=== PATIENT | male | born 1930 | race Caucasian/White ===

== ENCOUNTER 2016-05-05 15:15 | Emergency (ER) | payer MEDICARE ==
[~2016-05-05] VITALS: Ht 177.8 cm; Wt 90.0 kg
[~2016-05-05 15:15] MED LIST: 1-ME1LIQ PO; ASPI325T PO; ATOR40TA49; COQ-100C5 PO; COZA100T PO; HYDR-2768 PO; LEVI20TA PO; OMEGCAP2 PO; OMEP20TA PO; TAMS0.4C67 PO; TRAM50TA PO; WARF7.5 PO
[2016-05-05 15:18] VITALS: BP 156/72; PULSE 64; TEMP 97.5; O2SAT 90
[2016-05-05] MEDS ORDERED: methylPREDNISolone SOD SUCC 125 MG/2 ML VIAL IVP ONE (15:45)
[2016-05-05] MEDS ORDERED: SODIUM CHLORIDE 0.9% FLUSH 5 ML FLUSH IVF PRN (15:45)
--- NOTE | 2016-05-05 15:46 | PD ---
HPI Chief Complaint: Respiratory Symptoms Time Seen by Provider: 15:43 Travel History International Travel<30 days: No Contact w/Intl Traveler<30days: No Traveled to known affect area: No History of Present Illness HPI 86-year-old male presents to the emergency department for evaluation of cough, chest congestion, shortness breath, wheezing that started approximately one week ago. He reports progressive worsening symptoms despite [id number] treatment. He denies any history of asthma, COPD, pneumonia. He was a previous smoker. He does report some mild chest pain with coughing. He denies any fevers. He denies any history of wheezing. Has a history of congestive heart failure. He does have history of pacemaker, A. fib, hypertension, carotid enterectomy. He is currently on Coumadin. He denies any leg edema. No recent surgeries or travel. No other complaints. PFSH Past Medical History Arthritis: Yes (Bilateral hands and shoulders ) GERD: Yes Hypertension: Yes Past Surgical History Cardiac Surgery: Yes (PACEMAKER 2011) Pacemaker: Yes Social History Alcohol Use: Yes (2-3 BEERS A DAY) Tobacco Use: No Substance Use: No Allergies-Medications (Allergen,Severity, Reaction): Coded Allergies: Iodine (Verified Allergy, Unknown, 05/05/16) MRI PRECAUTION (Verified Adverse Reaction, Severe, NON REVO PACEMAKER 05/26 LRS, 05/05/16) Reported Meds & Prescriptions Reported Meds & Active Scripts Active Reported Fish Oil 1200 mg ([place]-3 Fatty Acids) 1 Cap Cap 1,200 Mg PO DAILY [Q10] Warfarin 7.5 Mg Tab 7.5 Mg PO ,,.FRI Warfarin 5 Mg Tab 5 Mg PO SAT,SUN,MON Tamsulosin (Tamsulosin HCl) 0.4 Mg Cap 0.4 Mg PO HS Amlodipine (Amlodipine Besylate) 2.5 Mg Tab 2.5 Mg PO DAILY Losartan (Losartan Potassium) 100 Mg Tab 100 Mg PO DAILY Review of Systems Except as stated in HPI: all other systems reviewed are Neg Physical Exam Narrative GENERAL: Well-developed well-nourished elderly male patient, afebrile. SKIN: Warm and dry. HEAD: Normocephalic. Atraumatic. EYES: No scleral icterus. No injection or drainage. NECK: Supple, trachea midline. No JVD or lymphadenopathy. CARDIOVASCULAR: Regular rate and rhythm without murmurs, gallops, or rubs. RESPIRATORY: Breath sounds equal bilaterally. No accessory muscle use. Lungs sounds with expiratory wheezes noted throughout. GASTROINTESTINAL: Abdomen soft, non-tender, nondistended. MUSCULOSKELETAL: No cyanosis, or edema. BACK: Nontender without obvious deformity. No CVA tenderness. Data Data Last Documented VS Vital Signs Date Time Temp Pulse Resp B/P Pulse Ox O2 Delivery O2 Flow Rate FiO2 05/05/16 16:56 98 Nasal Cannula 2.00 05/05/16 16:08 75 18 05/05/16 16:07 141/70 05/05/16 15:18 97.5 Orders Complete Blood Count With Diff (05/05/16 15:41) Basic Metabolic Panel (Bmp) (05/05/16 15:41) Magnesium (Mg) (05/05/16 15:41) Ckmb (Isoenzyme) Profile (05/05/16 15:41) Troponin I (05/05/16 15:41) Iv Access Insert/Monitor (05/05/16 15:41) Electrocardiogram (05/05/16 15:41) Ecg Monitoring (05/05/16 15:41) Oximetry (05/05/16 15:41) Oxygen Administration (05/05/16 15:41) Chest, Single Ap (05/05/16 15:41) Sodium Chloride 0.9% Flush (Ns Flush) (05/05/16 15:45) Methylprednisolone So Succ Inj (Solumedr (05/05/16 15:45) Albuterol-Ipratropium Neb (Duoneb Neb) (05/05/16 15:45) Prothrombin Time / Inr (Pt) (05/05/16 15:41) Act Partial Throm Time (Ptt) (05/05/16 15:41) B-Type Natriuretic Peptide (05/05/16 16:39) D-Dimer (05/05/16 16:39) Guaifenesin Er (Mucinex Er) (05/05/16 16:45) Albuterol-Ipratropium Neb (Duoneb Neb) (05/05/16 16:45) CKMB (05/05/16 16:11) CKMB% (05/05/16 16:11) Labs Laboratory Tests Test 05/05/16 16:11 White Blood Count 7.9 TH/MM3 Red Blood Count 4.52 MIL/MM3 Hemoglobin 14.0 GM/DL Hematocrit 41.7 % Mean Corpuscular Volume 92.1 FL Mean Corpuscular Hemoglobin 30.9 PG Mean Corpuscular Hemoglobin 33.6 % Concent Red Cell Distribution Width 14.8 % Platelet Count 178 TH/MM3 Mean Platelet Volume 9.6 FL Neutrophils (%) (Auto) 65.2 % Lymphocytes (%) (Auto) 16.6 % Monocytes (%) (Auto) 14.4 % Eosinophils (%) (Auto) 2.7 % Basophils (%) (Auto) 1.1 % Neutrophils # (Auto) 5.2 TH/MM3 Lymphocytes # (Auto) 1.3 TH/MM3 Monocytes # (Auto) 1.1 TH/MM3 Eosinophils # (Auto) 0.2 TH/MM3 Basophils # (Auto) 0.1 TH/MM3 CBC Comment DIFF FINAL Differential Comment Prothrombin Time 20.1 SEC Prothromb Time International 1.8 RATIO Ratio Activated Partial 38.3 SEC Thromboplast Time D-Dimer Quantitative (PE/DVT) 0.24 MG/L FEU Sodium Level 134 MEQ/L Potassium Level 4.5 MEQ/L Chloride Level 100 MEQ/L Carbon Dioxide Level 25.0 MEQ/L Anion Gap 9 MEQ/L Blood Urea Nitrogen 27 MG/DL Creatinine 1.47 MG/DL Estimat Glomerular Filtration 45 ML/MIN Rate Random Glucose 89 MG/DL Calcium Level 8.7 MG/DL Magnesium Level 2.2 MG/DL Total Creatine Kinase 166 U/L Creatine Kinase MB 1.5 NG/ML Troponin I 0.02 NG/ML B-Type Natriuretic Peptide 436 PG/ML [facility] Medical Decision Making Medical Screen Exam Complete: Yes Emergency Medical Condition: Yes Medical Record Reviewed: Yes Interpretation(s) cxr - CONCLUSION: Trace left base atelectasis. Differential Diagnosis Pneumonia versus bronchitis versus CHF versus URI versus ACS Narrative Course 86-year-old male presents to the emergency department for evaluation of cold symptoms for one week that is progressively worsening. Physical exam reveals extra wheezes noted throughout. EKG is ordered and pending. Chest x-ray is ordered and pending. CBC, BMP, magnesium, BNP, d-dimer, CK, troponin, PTT, PT/ INR ordered and pending. EKG shows paced rhythm, heart rate 81. Chest x-ray shows trace left base atelectasis. CBC shows no acute abnormalities. BMP shows elevated BUN/ creatinine 27/1.47. Magnesium is 2.2. CK is 166. Troponin is 0.02. BNP is 436. Coags show PT of 20.1, INR 1.8, PTT 38.3. D-dimer is 0.24. Upon reassessment, patient states he feels much better. The patient will be discharged prescription for azithromycin, prednisone, albuterol inhaler. He is to follow with his primary care physician. He is to return for any acute worsening of symptoms. The patient is agreeable to this plan. Diagnosis Primary Impression: Bronchitis Referrals: Primary Care Physician 1 day Patient Instructions: Acute Bronchitis (DC), General Instructions Additional Instructions: Take antibiotic as directed until gone. Take prednisone as directed. Start this tomorrow. Use albuterol inhaler as instructed as needed for shortness of breath/wheezing. Follow-up with her primary care physician a 1-2 days. Return to the emergency department for any acute worsening of symptoms. Med/Other Pt SpecificInfo: Prescription(s) given Scripts Albuterol 18 GM Inh (Ventolin Hfa 18 GM Inh)90 Mcg/Act Aer1 Puff INH Q4H PRN ( SHORTNESS OF BREATH) #1 INHALER Ref 0 Prov:Glenys Carroll 05/05/16 Prednisone 20 Mg Tab40 Mg PO DAILY 4 Days Ref 0 Prov:Glenys Carroll 05/05/16 Azithromycin (Zithromax Z-Blake)250 Mg [id number] Mg PO DIRECTED #1 DSPK Ref 0 500 MG (2 tabs) day 1, then 1 tab days 2-5. Prov:Glenys Carroll 05/05/16 Disposition: 01 DISCHARGE HOME Condition: Stable Glenys Carroll May 05, 2016 15:46
[2016-05-05] MEDS: RESP: ALBUTEROL 2.5 MG/IPRATROPIUM 0.5 MG NEB (SCH) INH (15:55)
[2016-05-05] MEDS ORDERED: WARF-23 PO (16:00)
[2016-05-05] MEDS ORDERED: Q10 (16:00)
[2016-05-05] MEDS ORDERED: AMLO2.5T PO (16:00)
[2016-05-05] MEDS ORDERED: WARF-21 PO (16:00)
[2016-05-05] MEDS ORDERED: TAMS0.4C4 PO (16:00)
[2016-05-05] MEDS ORDERED: OMEG5CAP PO (16:00)
[2016-05-05] MEDS ORDERED: LOSA100T PO (16:00)
[2016-05-05 16:01] VITALS: O2SAT 97
[2016-05-05 16:07] VITALS: BP 141/70; PULSE 79; RESP 18; O2SAT 98
[2016-05-05 16:25] LABS: AUTOMATED NEUTROPHIL # 5.2 TH/MM3 (1.8-7.7); BASOPHIL # 0.1 TH/MM3 (0-0.2); BASOPHIL % 1.1 % (0.0-2.0); EOSINOPHIL # 0.2 TH/MM3 (0-0.4); EOSINOPHIL % 2.7 % (0.0-4.0); HEMATOCRIT 41.7 % (39.0-51.0); HEMO FLAGS DIFF FINAL; LYMPH % 16.6 % (9.0-44.0); LYMPHOCYTE # 1.3 TH/MM3 (1.0-4.8); MEAN CELL VOLUME 92.1 FL (80.0-100.0); MEAN CORPUSCULAR HEMOGLOBIN 30.9 PG (27.0-34.0); MEAN CORPUSCULAR HGB CONC 33.6 % (32.0-36.0); MONO % 14.4 % (0.0-8.0); NEUT % 65.2 % (16.0-70.0); PLATELET COUNT 178 TH/MM3 (150-450); RED BLOOD COUNT 4.52 MIL/MM3 (4.50-5.90); RED CELL DISTRIBUTION WIDTH 14.8 % (11.6-17.2); WHITE BLOOD COUNT 7.9 TH/MM3 (4.0-11.0)
--- NOTE | 2016-05-05 16:30 | RADRPT ---
EXAM DATE/TIME: 05/05/2016 16:16 [facility] COMPARISON: CHEST SINGLE AP, May 26, 2012, 18:50. INDICATIONS : Short of Breath, Cough, Chest Pain. MEDICAL HISTORY : None. SURGICAL HISTORY : Pacemaker. ENCOUNTER: Initial ACUITY: 1 week PAIN SCORE: 3/10 LOCATION: Bilateral chest FINDINGS: Trace left base atelectasis noted. Right lung is clear. No pleural effusion or pneumothorax seen on e ither side. Heart size stable, upper limits of normal. Cardiac pacer again noted. Thoracic aorta is tortuous and atherosclerotic. CONCLUSION: Trace left base atelectasis. Marcus Almaguer MD on May 05, 2016 at 16:27 Board Certified Radiologist. This report was verified electronically.
[2016-05-05 16:33] LABS: APTT (PATIENT) 38.3 SEC (24.3-30.1); INTERNATIONAL NORMALIZED RATIO 1.8 RATIO; PROTHROMBIN TIME - PATIENT 20.1 SEC (9.8-11.6)
[2016-05-05] MEDS ORDERED: guaiFENesin E.R. 600 MG TAB PO ONE (16:45)
[2016-05-05] MEDS ORDERED: RESP: ALBUTEROL 2.5 MG/IPRATROPIUM 0.5 MG NEB (SCH) NEB ONE (16:45)
[2016-05-05 16:48] LABS: ANION GAP 9 MEQ/L (5-15); BLOOD UREA NITROGEN 27 MG/DL (7-18); CHLORIDE 100 MEQ/L (98-107); GLOMERULAR FILTRATION RATE 45 ML/MIN (>89); MAGNESIUM 2.2 MG/DL (1.5-2.5); POTASSIUM 4.5 MEQ/L (3.5-5.1); SODIUM (NA) 134 MEQ/L (136-145)
[2016-05-05 16:50] LABS: CREATINE KINASE 166 U/L (39-308)
[2016-05-05 16:56] VITALS: O2SAT 98
[2016-05-05 17:02] LABS: CKMB 1.5 NG/ML (0.5-3.6)
[2016-05-05] MEDS ORDERED: PRED20 PO (18:07)
[2016-05-05] MEDS ORDERED: VENTAER INH (18:07)
[2016-05-05] MEDS ORDERED: ZITHTAB PO (18:07)
[2016-05-05 18:08] VITALS: BP 134/65; PULSE 91; RESP 18; O2SAT 95
--- NOTE | 2016-05-06 18:25 | EKG ---
Date Performed: 05/05/2016 Time Performed: 15:52:37 PTAGE: 86 years EKG: ELECTRONIC VENTRICULAR PACEMAKER Since previous tracing, no significant change noted ABNORM AL RHYTHM ECG PREVIOUS TRACING : 05/26/2012 18.22 DOCTOR: Avelina Freeman Interpretating Date/Time 05/06/2016 18:23:51
== END 2016-05-05 18:54 | disposition home or self-care (01) ==
LOC: NEPC 15:15
DX: J40 Bronchitis, not specified as acute or chronic (principal); I10 Essential (primary) hypertension; I48.91 Unspecified atrial fibrillation; M19.041 Primary osteoarthritis, right hand; M19.042 Primary osteoarthritis, left hand; M19.012 Primary osteoarthritis, left shoulder; M19.011 Primary osteoarthritis, right shoulder; F10.20 Alcohol dependence, uncomplicated; Z87.891 Personal history of nicotine dependence; Z95.0 Presence of cardiac pacemaker
CPT/HCPCS: 71010; 80048; 82550; 82552; 83735; 83880; 84484; 85025; 85379; 85610; 85730; 93005; 94640; 94664; 96374; 99284; J2930

== ENCOUNTER 2016-10-10 16:04 | Inpatient (IN) | payer MEDICARE ==
[~2016-10-10 16:04] MED LIST changes: -1-ME1LIQ PO; +AMLO2.5T PO; -ASPI325T PO; -ATOR40TA49; -COQ-100C5 PO; -COZA100T PO; -HYDR-2768 PO; -LEVI20TA PO; +LOSA100T PO; +OMEG5CAP PO; -OMEGCAP2 PO; -OMEP20TA PO; +PRED20 PO; +Q10; +TAMS0.4C4 PO; -TAMS0.4C67 PO; -TRAM50TA PO; +VENTAER INH; +WARF-21 PO; +WARF-23 PO; -WARF7.5 PO; +ZITHTAB PO
[2016-10-10 16:15] VITALS: BP 188/98; PULSE 87; RESP 23; O2SAT 98
[2016-10-10 16:36] VITALS: BP 188/98; PULSE 87; RESP 23; O2SAT 98
[2016-10-10] MEDS ORDERED: SODIUM CHLORIDE 0.9% FLUSH 10 ML FLUSH IVF PRN (16:45)
[2016-10-10] MEDS ORDERED: ISOS30TA3 PO (16:49)
[2016-10-10] MEDS ORDERED: COUM10TA PO (16:49)
--- NOTE | 2016-10-10 16:56 | PD ---
HPI Chief Complaint: Respiratory Distress Time Seen by Provider: 16:16 Travel History International Travel<30 days: No Contact w/Intl Traveler<30days: No Traveled to known affect area: No History of Present Illness HPI Patient is an 86 year old male with history of afib, pacemaker, htn, who was sent to the ER by his PCP Dr. Ross for admission and evaluation of SOB. Patient reports that he has been short of breath for the past 5 days. Reports that he is short of breath at rest as well as on exertion. Reports no chest pain, denies cough/congestion. Denies fever/chills. He apparently saw Dr. Diaz 4 days ago and no new diagnosis was made. Patient was sent to the ER for evaluation to rule out Pulmonary embolism although he is on warfarin with history of afib and to rule out ACS PFSH Past Medical History Hx Anticoagulant Therapy: Yes Arthritis: Yes (Bilateral hands and shoulders ) Cardiovascular Problems: Yes Chemotherapy: No Cerebrovascular Accident: No Diabetes: No GERD: Yes Hypertension: Yes Respiratory: Yes Past Surgical History Cardiac Surgery: Yes (PACEMAKER 2011) Hysterectomy: No Pacemaker: Yes Social History Alcohol Use: Yes Tobacco Use: No Substance Use: No Allergies-Medications (Allergen,Severity, Reaction): Coded Allergies: Pravastatin (Verified Allergy, Severe, Hives, 10/10/16) Shellfish (Verified Allergy, Severe, 10/10/16) Iodine (Verified Allergy, Unknown, 10/10/16) MRI PRECAUTION (Verified Adverse Reaction, Severe, NON REVO PACEMAKER 05/26 LRS, 10/10/16) Reported Meds & Prescriptions Reported Meds & Active Scripts Active Reported Coumadin (Warfarin) 10 Mg Tab 10 Mg PO DAILY Fish Oil 1200 mg ([place]-3 Fatty Acids) 1 Cap Cap 1,200 Mg PO DAILY [Q10] Warfarin 7.5 Mg Tab 7.5 Mg PO ,W,TH.FRI Warfarin 5 Mg Tab 5 Mg PO SAT,FRI,MON Isosorbide Mononitrate ER (Isosorbide Mononitrate) 30 Mg Liliane 30 Mg PO DAILY Review of Systems General / Constitutional: No: Fever Eyes: No: Visual changes HENT: No: Headaches Cardiovascular: No: Chest Pain or Discomfort Respiratory: Positive: Shortness of Breath Gastrointestinal: No: Abdominal Pain Genitourinary: No: Dysuria Musculoskeletal: No: Pain Skin: No Rash Neurologic: No: Weakness Psychiatric: No: Depression Endocrine: No: Polydipsia Hematologic/Lymphatic: No: Easy Bruising Physical Exam Narrative GENERAL: Moderate distress SKIN: Focused skin assessment warm/dry. HEAD: Atraumatic. Normocephalic. EYES: Pupils equal and round. No scleral icterus. No injection or drainage. ENT: No nasal bleeding or discharge. Mucous membranes pink and moist. NECK: Trachea midline. No JVD. CARDIOVASCULAR: Regular rate and rhythm. No murmur appreciated. RESPIRATORY: No accessory muscle use. Clear to auscultation. Breath sounds equal bilaterally. GASTROINTESTINAL: Abdomen soft, non-tender, nondistended. Hepatic and splenic margins not palpable. MUSCULOSKELETAL: No obvious deformities. No clubbing. No cyanosis. No edema. NEUROLOGICAL: Awake and alert. No obvious cranial nerve deficits. Motor grossly within normal limits. Normal speech. PSYCHIATRIC: Appropriate mood and affect; insight and judgment normal. Data Data Last Documented VS Vital Signs Date Time Temp Pulse Resp B/P Pulse Ox O2 Delivery O2 Flow Rate FiO2 10/10/16 18:24 85 19 173/84 97 Nasal Cannula 2 Orders Electrocardiogram (10/10/16 16:42) B-Type Natriuretic Peptide (10/10/16 16:42) Ckmb (Isoenzyme) Profile (10/10/16 16:42) Complete Blood Count With Diff (10/10/16 16:42) Comprehensive Metabolic Panel (10/10/16 16:42) Magnesium (Mg) (10/10/16 16:42) Prothrombin Time / Inr (Pt) (10/10/16 16:42) Act Partial Throm Time (Ptt) (10/10/16 16:42) Troponin I (10/10/16 16:42) Lipase (10/10/16 16:42) Chest, Single Ap (10/10/16 16:42) Ecg Monitoring (10/10/16 16:42) Iv Access Insert/Monitor (10/10/16 16:42) Oximetry (10/10/16 16:42) Sodium Chloride 0.9% Flush (Ns Flush) (10/10/16 16:45) Us Leg Venous Doppler Bilat (10/10/16 ) Ventilation & Perfusion Scan (10/10/16 ) Blood Culture (10/10/16 18:09) Ceftriaxone Inj (Rocephin Inj) (10/10/16 18:15) Azithromycin Inj (Zithromax Inj) (10/10/16 18:15) Diet Diabetic (10/10/16 Dinner) Ct Thorax/ Chest Wo Iv Contras (10/10/16 ) Admit Order (Ed Use Only) (10/10/16 18:42) Labs Laboratory Tests Test 10/10/16 16:55 White Blood Count 7.5 TH/MM3 Red Blood Count 4.69 MIL/MM3 Hemoglobin 14.5 GM/DL Hematocrit 42.8 % Mean Corpuscular Volume 91.2 FL Mean Corpuscular Hemoglobin 30.8 PG Mean Corpuscular Hemoglobin 33.8 % Concent Red Cell Distribution Width 16.8 % Platelet Count 198 TH/MM3 Mean Platelet Volume 9.7 FL Neutrophils (%) (Auto) 67.4 % Lymphocytes (%) (Auto) 19.0 % Monocytes (%) (Auto) 11.4 % Eosinophils (%) (Auto) 1.5 % Basophils (%) (Auto) 0.7 % Neutrophils # (Auto) 5.0 TH/MM3 Lymphocytes # (Auto) 1.4 TH/MM3 Monocytes # (Auto) 0.8 TH/MM3 Eosinophils # (Auto) 0.1 TH/MM3 Basophils # (Auto) 0.0 TH/MM3 CBC Comment DIFF FINAL Differential Comment Prothrombin Time 24.1 SEC Prothromb Time International 2.1 RATIO Ratio Activated Partial 35.6 SEC Thromboplast Time Sodium Level 138 MEQ/L Potassium Level 5.3 MEQ/L Chloride Level 103 MEQ/L Carbon Dioxide Level 26.1 MEQ/L Anion Gap 9 MEQ/L Blood Urea Nitrogen 25 MG/DL Creatinine 1.30 MG/DL Estimat Glomerular Filtration 52 ML/MIN Rate Random Glucose 87 MG/DL Calcium Level 9.1 MG/DL Magnesium Level 2.3 MG/DL Total Bilirubin 1.1 MG/DL Aspartate Amino Transf 43 U/L (AST/SGOT) Alanine Aminotransferase 55 U/L (ALT/SGPT) Alkaline Phosphatase 60 U/L Total Creatine Kinase 99 U/L Troponin I 0.02 NG/ML B-Type Natriuretic Peptide 702 PG/ML Total Protein 7.5 GM/DL Albumin 3.1 GM/DL Lipase 97 U/L [facility] Medical Decision Making Medical Screen Exam Complete: Yes Emergency Medical Condition: Yes Interpretation(s) EKG at 1645: Ventricular paced at 85bpm, qt/qtc: 431/473 Vital Signs Date Time Temp Pulse Resp B/P Pulse Ox O2 Delivery O2 Flow Rate FiO2 10/10/16 16:36 87 23 188/98 98 10/10/16 16:15 87 23 188/98 98 Nasal Cannula 3 Differential Diagnosis ACS, arrhythmia, PE, electrolyte abnormality, pneumonia Narrative Course 86-year-old male who was sent to the emergency room for evaluation of shortness of breath. Patient currently is on Coumadin as he has history of A. fib and ventricular pacemaker, reports that he has been short of breath at rest as well as exertion for the past 5 days. Patient was sent to the emergency room to rule out ACS versus PE. Patient does have allergy to IV dye, unable to perform CTA, will obtain VQ scan as well as Doppler ultrasounds of lower extremities. Patient was placed on a network coordinator upon arrival to the emergency room, plan to obtain lab work and x-ray of the chest. Laboratory Tests Test 10/10/16 16:55 White Blood Count 7.5 TH/MM3 (4.0-11.0) Red Blood Count 4.69 MIL/MM3 (4.50-5.90) Hemoglobin 14.5 GM/DL (13.0-17.0) Hematocrit 42.8 % (39.0-51.0) Mean Corpuscular Volume 91.2 FL (80.0-100.0) Mean Corpuscular Hemoglobin 30.8 PG (27.0-34.0) Mean Corpuscular Hemoglobin 33.8 % Concent (32.0-36.0) Red Cell Distribution Width 16.8 % (11.6-17.2) Platelet Count 198 TH/MM3 (150-450) Mean Platelet Volume 9.7 FL (7.0-11.0) Neutrophils (%) (Auto) 67.4 % (16.0-70.0) Lymphocytes (%) (Auto) 19.0 % (9.0-44.0) Monocytes (%) (Auto) 11.4 % (0.0-8.0) Eosinophils (%) (Auto) 1.5 % (0.0-4.0) Basophils (%) (Auto) 0.7 % (0.0-2.0) Neutrophils # (Auto) 5.0 TH/MM3 (1.8-7.7) Lymphocytes # (Auto) 1.4 TH/MM3 (1.0-4.8) Monocytes # (Auto) 0.8 TH/MM3 (0-0.9) Eosinophils # (Auto) 0.1 TH/MM3 (0-0.4) Basophils # (Auto) 0.0 TH/MM3 (0-0.2) CBC Comment DIFF FINAL Differential Comment Prothrombin Time 24.1 SEC (9.8-11.6) Prothromb Time International 2.1 RATIO Ratio Activated Partial 35.6 SEC Thromboplast Time (24.3-30.1) Sodium Level 138 MEQ/L (136-145) Potassium Level 5.3 MEQ/L (3.5-5.1) Chloride Level 103 MEQ/L (98-107) Carbon Dioxide Level 26.1 MEQ/L (21.0-32.0) Anion Gap 9 MEQ/L (5-15) Creatinine 1.30 MG/DL (0.60-1.30) Estimat Glomerular Filtration 52 ML/MIN (>89) Rate Random Glucose 87 MG/DL (74-106) Calcium Level 9.1 MG/DL (8.5-10.1) Magnesium Level 2.3 MG/DL (1.5-2.5) Aspartate Amino Transf 43 U/L (15-37) (AST/SGOT) B-Type Natriuretic Peptide 702 PG/ML (0-100) Albumin 3.1 GM/DL (3.4-5.0) Patient with wbc 7.5, sodium 138, potassium 5.3, INR 2.1, doppler US of LE's neg for dvt, VQ scan pending to r/o PE, patient does have an xray of his chest which shows a lobar consolidation of left lower lobe - I do think that this is the reason why he is short of breath case reviewed with dr. hopper who accepts pt to admission, request ct of chest , understands that VQ is pending Diagnosis Primary Impression: Pneumonia Additional Impression: SOB (shortness of breath) Admitting Information Admitting Physician Requests: Observation Chen García DO Oct 10, 2016 16:56
[2016-10-10 17:23] LABS: BASOPHIL % 0.7 % (0.0-2.0); EOSINOPHIL # 0.1 TH/MM3 (0-0.4); EOSINOPHIL % 1.5 % (0.0-4.0); HEMATOCRIT 42.8 % (39.0-51.0); HEMO FLAGS DIFF FINAL; LYMPHOCYTE # 1.4 TH/MM3 (1.0-4.8); MEAN CELL VOLUME 91.2 FL (80.0-100.0); MEAN CORPUSCULAR HEMOGLOBIN 30.8 PG (27.0-34.0); MEAN CORPUSCULAR HGB CONC 33.8 % (32.0-36.0); MONO % 11.4 % (0.0-8.0); NEUT % 67.4 % (16.0-70.0); PLATELET COUNT 198 TH/MM3 (150-450); RED BLOOD COUNT 4.69 MIL/MM3 (4.50-5.90); RED CELL DISTRIBUTION WIDTH 16.8 % (11.6-17.2); WHITE BLOOD COUNT 7.5 TH/MM3 (4.0-11.0)
[2016-10-10 17:32] LABS: APTT (PATIENT) 35.6 SEC (24.3-30.1); INTERNATIONAL NORMALIZED RATIO 2.1 RATIO; PROTHROMBIN TIME - PATIENT 24.1 SEC (9.8-11.6)
[2016-10-10 17:52] LABS: ANION GAP 9 MEQ/L (5-15); AST (GOT) 43 U/L (15-37); BICARBONATE 26.1 MEQ/L (21.0-32.0); CHLORIDE 103 MEQ/L (98-107); GLOMERULAR FILTRATION RATE 52 ML/MIN (>89); MAGNESIUM 2.3 MG/DL (1.5-2.5); SODIUM (NA) 138 MEQ/L (136-145)
[2016-10-10 17:55] LABS: POTASSIUM 5.3 MEQ/L (3.5-5.1)
--- NOTE | 2016-10-10 17:58 | RADRPT ---
EXAM DATE/TIME: 10/10/2016 17:28 [facility] COMPARISON: CHEST SINGLE AP, May 05, 2016, 16:16. INDICATIONS : Short of breath. MEDICAL HISTORY : None. SURGICAL HISTORY : Pacemaker. ENCOUNTER: Initial ACUITY: 1 day PAIN SCORE: 0/10 LOCATION: Bilateral chest FINDINGS: There is consolidation in the left lower lung causing loss of delineation of the entire left hemidiap hragm and portions of the lateral left heart border. A few air bronchograms in the retrocardiac marge on. The right lung is clear. Portions of the right hemidiaphragm are delineated. The heart is norm al size. CONCLUSION: Lobar consolidation left lower lobe. Jose Rodriguez MD on October 10, 2016 at 17:56 Board Certified Radiologist. This report was verified electronically.
--- NOTE | 2016-10-10 18:09 | RADRPT ---
EXAM DATE/TIME: 10/10/2016 17:28 [facility] COMPARISON: No previous studies available for comparison. INDICATIONS : Shortness of breath. MEDICAL HISTORY : Arthritis. Hypertension. Gastroesophageal reflux disease. Atrial fibrillation. SURGICAL HISTORY : Pacemaker. Endardectomy. ENCOUNTER: Initial ACUITY: 1 week PAIN SCORE: 3/10 LOCATION: Bilateral legs. TECHNIQUE: Venous ultrasound of the left and right leg was performed from the inguinal ligament to the proximal calf. Real-time, color Doppler and spectral tracing, compression and augmentation techniques were us ed. FINDINGS: RIGHT LEG: There is normal compressibility of the deep venous system from the inguinal region to the proximal ca lf. No echogenic clot is seen in the lumen of the common femoral, femoral, popliteal, and posterior tibial veins. There is a normal response of the venous system to proximal and distal augmentation an d respiration. LEFT LEG: There is normal compressibility of the deep venous system from the inguinal region to the proximal ca lf. No echogenic clot is seen in the lumen of the common femoral, femoral, popliteal, and posterior tibial veins. There is a normal response of the venous system to proximal and distal augmentation an d respiration. CONCLUSION: The study is negative for deep venous thrombosis bilateral lower extremities. Jose Rodriguez MD on October 10, 2016 at 18:07 Board Certified Radiologist. This report was verified electronically.
[2016-10-10 18:13] LABS: ALKALINE PHOSPHATASE 60 U/L (45-117); ALT (GPT) 55 U/L (12-78); BLOOD UREA NITROGEN 25 MG/DL (7-18); CREATINE KINASE 99 U/L (39-308); TOTAL BILIRUBIN ADULT 1.1 MG/DL (0.2-1.0)
[2016-10-10] MEDS ORDERED: AZITHROMYCIN INJ 500 MG in SODIUM CHLOR 0.9% 250 ML INJ 250 ML IV ONE (18:15)
[2016-10-10] MEDS ORDERED: cefTRIAXone INJ 1,000 MG in SODIUM CHLORIDE 0.9% INJ 100 ML IV ONE (18:15)
[2016-10-10 18:24] VITALS: BP 173/84; PULSE 85; RESP 19; O2SAT 97
--- NOTE | 2016-10-10 19:37 | RADRPT ---
EXAM DATE/TIME: 10/10/2016 19:03 [facility] COMPARISON: CHEST SINGLE AP, October 10, 2016, 17:28. INDICATIONS : Dyspnea for five days. DOSE: 8.5 mCi Tc99m MAA IV 0.80 mCi Tc99m DTPA aerosol MEDICAL HISTORY : Hypertension. Gastroesophageal reflux disease. Atrial fibrillation. SURGICAL HISTORY : Pacemaker. ENCOUNTER: Initial ACUITY: 4 - 6 days PAIN SCALE: 0/10 LOCATION: Chest. TECHNIQUE: Following five minutes of tidal breathing of DTPA aerosol, planar images of the lungs were performed in eight projections. The patient was then injected with MAA, and eight-view perfusion scan was perf ormed. FINDINGS: There is diminished ventilation and perfusion to the left lower lobe associated with consolidative ch anges on the chest x-ray. No other focal segmental or subsegmental perfusion abnormalities are identi fied. CONCLUSION: Strictly indeterminate scan tending toward lower likelihood of PE given the constellation of findings Marcus Terrell MD on October 10, 2016 at 19:31 Board Certified Radiologist. This report was verified electronically.
[2016-10-10 20:17] VITALS: PULSE 88; RESP 18; O2SAT 98
--- NOTE | 2016-10-10 20:18 | RADRPT ---
EXAM DATE/TIME: 10/10/2016 19:37 [facility] COMPARISON: No previous studies available for comparison. INDICATIONS : Sob x 5 days . RADIATION DOSE: 5.88 CTDIvol (mGy) MEDICAL HISTORY : Cardiovascular disease. Hypertension. Gastroesophageal reflux disease. SURGICAL HISTORY : None. ENCOUNTER: Initial ACUITY: 4 - 6 days PAIN SCALE: 7/10 LOCATION: Bilateral chest TECHNIQUE: Volumetric scanning of the chest was performed. Using automated exposure control and adjustment of t he mA and/or kV according to patient size, radiation dose was kept as low as reasonably achievable to obtain optimal diagnostic quality images. FINDINGS: There are bilateral pleural effusions present, moderate on the left and small on the right. There is compressive atelectasis in the lung bases, left worse than right. There are mildly prominent potentially reactive lymph nodes in the central mediastinum. Coronary patience ry calcifications are present. Pacemaker is noted. There is no evidence of axillary adenopathy or chest wall destruction. Upper abdominal structures are benign. CONCLUSION: Effusions and basilar lung atelectasis, left worse than right. Marcus Terrell MD on October 10, 2016 at 20:14 Board Certified Radiologist. This report was verified electronically.
--- NOTE | 2016-10-10 20:35 | HHI.HP ---
HPI Service [facility] Hospitalists Primary Care Physician Gonzalo Ross MD Admission Diagnosis Pneumonia, shortness of breath Chief Complaint: dyspnea Travel History International Travel<30 Days: No Contact w/Intl Traveler <30 Da: No Traveled to Known Affected Are: No History of Present Illness Patient is an 86 year old male with history of afib, pacemaker, htn, ? COPD who was sent to the ER by his PCP Dr. Ross for admission and evaluation of SOB. Patient reports that he has been short of breath for the past 5 days. Reports that he is short of breath at rest as well as on exertion. Dyspnea is worse with lying flat. Reports no chest pain, denies cough/congestion. Denies fever/ chills. He apparently saw Dr. Diaz 4 days ago and no new diagnosis was made but he had some tests ordered. Per outpatient chart review patient has had dyspnea for quite some time but current episode has been ongoing for 5 days. He is noted to have pleural effusions and has been seeing pulmonology regarding this. The etiology of this profusion is as of yet undetermined but was noted on October 07 chest x-ray as an outpatient. Patient denies any significant weight gain or lower extremity edema of late. He actually states that he has overall lost weight over the last few months. Review of outpatient records does support approximately 12-15 pound weight loss over the last few months. He states that he feels better here with supplemental oxygen in place. It is noted that his outpatient room air saturation was 94%. He has had no recent medication change but apparently was treated for bronchitis with azithromycin several months ago. He also had isosorbide started at the end of July of this year for some intrascapular back pain. This helped his shortness of breath for a while but the dyspnea has returned now. He denies any hemoptysis or night sweats. Review of Systems Constitutional: COMPLAINS OF: Fatigue, Weight loss, DENIES: Diaphoretic episodes, Fever, Weight gain, Chills, Dizziness, Change in appetite, Night Sweats Endocrine: DENIES: Heat/cold intolerance, Polydipsia, Polyuria, Polyphagia Ears, nose, mouth, throat: COMPLAINS OF: Hearing loss, DENIES: Tinnitus, Vertigo, Nasal discharge, Oral lesions, Throat pain, Hoarseness, Ear Pain, Running Nose, Epistaxis, Sinus Pain, Toothache, Odynophagia Respiratory: COMPLAINS OF: Cough, Shortness of breath, DENIES: Apneas, Snoring , Wheezing, Hemoptysis, Sputum production Cardiovascular: COMPLAINS OF: Dyspnea on Exertion, Orthopnea, DENIES: Chest pain, Palpitations, Syncope, PND, Lower Extremity Edema, Claudication Gastrointestinal: COMPLAINS OF: Difficulty Swallowing, DENIES: Abdominal pain , Black stools, Bloody stools, BRB per rectum, Constipation, Diarrhea, GERD, Nausea, Reflux, Vomiting, Anorexia, See HPI Musculoskeletal: COMPLAINS OF: Joint pain, Back pain Hematologic/lymphatic: COMPLAINS OF: Bruising Neurologic: COMPLAINS OF: Abnormal gait, DENIES: Headache, Localized weakness , Paresthesias, Seizures, Speech Problems, Tremor, Poor Balance Psychiatric: COMPLAINS OF: Anxiety Past Family Social History Past Medical History Angina pectoris Atherosclerosis of the aorta Atrial fibrillation BPH Possible COPD/chronic bronchitis Diminished hearing Chronic kidney disease stage III Elevated d-dimer Fatigue Hyperlipidemia Hypertension Inflammatory polyarthritis Obstructive sleep apnea Pulmonary hypertension Peripheral arterial disease 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 Dyspnea Past Surgical History Left carotid endarterectomy Pacemaker placement in 2011 Forearm laceration repair Wrist surgery Reported Medications Coumadin (Warfarin) 10 Mg Tab 10 Mg PO EACH FRIDAY Fish Oil 1200 mg ([place]-3 Fatty Acids) 1 Cap Cap 1,200 Mg PO DAILY [Q10] Warfarin 7.5 Mg Tab 7.5 Mg PO FRIDAY, FRIDAY, FRIDAY Warfarin 5 Mg Tab 5 Mg PO FRIDAY, FRIDAY, FRIDAY Isosorbide Mononitrate ER (Isosorbide Mononitrate) 30 Mg Liliane 30 Mg PO DAILY CoQ10 100 mg twice a day Mucinex 600 mg twice a day Omeprazole 20 mg daily as needed Ventolin inhaler 2 puffs every 4 hours as needed for cough or wheeze Allergies: Coded Allergies: Pravastatin (Verified Allergy, Severe, Hives, 10/10/16) Shellfish (Verified Allergy, Severe, 10/10/16) Iodine (Verified Allergy, Unknown, 10/10/16) MRI PRECAUTION (Verified Adverse Reaction, Severe, NON REVO PACEMAKER 05/26 LRS, 10/10/16) Family History Noncontributory Social History No tobacco in 50 years prior to that he did smoke 1-2 packs per day for approximately 15-20 years Drinks 2 beers per day for 2 years this is the second marriage he is prior to that Worked as a digital computer operator Originally from [place] Physical Exam Vital Signs Vital Signs Date Time Temp Pulse Resp B/P Pulse Ox O2 Delivery O2 Flow Rate FiO2 10/10/16 18:24 85 19 173/84 97 Nasal Cannula 2 10/10/16 16:36 87 23 188/98 98 10/10/16 16:15 87 23 188/98 98 Nasal Cannula 3 Physical Exam GENERAL: This is a well-nourished, well-developed patient, in no apparent distress. Alert and oriented. A bit hard of hearing. SKIN: Left flank with a few patches of erythema and early vesicle formation HEAD: Atraumatic. Normocephalic. No temporal or scalp tenderness. EYES: Pupils equal round and reactive. Extraocular motions intact. No scleral icterus. No injection or drainage. ENT: Nose without bleeding, purulent drainage or septal hematoma. Nasal cannula in place. Airway patent. NECK: Trachea midline. No JVD or lymphadenopathy. Supple, nontender, no meningeal signs. CARDIOVASCULAR: Irregular without murmurs, gallops, or rubs. RESPIRATORY: Clear to auscultation. Diminished breath sounds in the left base. No wheezes, rales, or rhonchi. GASTROINTESTINAL: Abdomen soft, non-tender, nondistended. No hepato-splenomegaly , or palpable masses. No guarding. MUSCULOSKELETAL: Extremities without clubbing, cyanosis. Trace edema about his feet. No joint tenderness, effusion, or edema noted. No calf tenderness. NEUROLOGICAL: Awake and alert. Cranial nerves II through XII intact. Motor and sensory grossly within normal limits. Five out of 5 muscle strength in all muscle groups. Normal speech. Laboratory Laboratory Tests Test 10/10/16 16:55 White Blood Count 7.5 Red Blood Count 4.69 Hemoglobin 14.5 Hematocrit 42.8 Mean Corpuscular Volume 91.2 Mean Corpuscular Hemoglobin 30.8 Mean Corpuscular Hemoglobin 33.8 Concent Red Cell Distribution Width 16.8 Platelet Count 198 Mean Platelet Volume 9.7 Neutrophils (%) (Auto) 67.4 Lymphocytes (%) (Auto) 19.0 Monocytes (%) (Auto) 11.4 Eosinophils (%) (Auto) 1.5 Basophils (%) (Auto) 0.7 Neutrophils # (Auto) 5.0 Lymphocytes # (Auto) 1.4 Monocytes # (Auto) 0.8 Eosinophils # (Auto) 0.1 Basophils # (Auto) 0.0 CBC Comment DIFF FINAL Differential Comment Prothrombin Time 24.1 Prothromb Time International 2.1 Ratio Activated Partial 35.6 Thromboplast Time Sodium Level 138 Potassium Level 5.3 Chloride Level 103 Carbon Dioxide Level 26.1 Anion Gap 9 Blood Urea Nitrogen 25 Creatinine 1.30 Estimat Glomerular Filtration 52 Rate Random Glucose 87 Calcium Level 9.1 Magnesium Level 2.3 Total Bilirubin 1.1 Aspartate Amino Transf 43 (AST/SGOT) Alanine Aminotransferase 55 (ALT/SGPT) Alkaline Phosphatase 60 Total Creatine Kinase 99 Troponin I 0.02 B-Type Natriuretic Peptide 702 Total Protein 7.5 Albumin 3.1 Lipase 97 Date/Time Procedure Status Source Growth 10/10/16 18:20 Aerobic Blood Culture Received Blood Peripheral Pending 10/10/16 18:20 Anaerobic Blood Culture Received Blood Peripheral Pending Result Diagram: 10/10/16 1655 10/10/16 1655 Imaging Last 72 hours Impressions Chest X-Ray 10/10/16 1642 Signed Impressions: Service Date/Time: October 17:28 - CONCLUSION: Lobar consolidation left lower lobe. Jose Rodriguez MD Lung Scan- Nuclear Medicine 10/10/16 0000 Signed Impressions: Service Date/Time: October 19:03 - CONCLUSION: Strictly indeterminate scan tending toward lower likelihood of PE given the constellation of findings Marcus Terrell MD Lower Extremity Ultrasound 10/10/16 0000 Signed Impressions: Service Date/Time: October 17:28 - CONCLUSION: The study is negative for deep venous thrombosis bilateral lower extremities. Jsoe Rodriguez MD Assessment and Plan Problem List: (1) Pulmonary infiltrate in left lung on chest x-ray Status: Acute Plan: Does not appear to have other findings associated with pneumonia such as leukocytosis, fever, sputum production. CT chest pending. V/Q scan noted. Outside review of films reveals pulmonary effusion. He has been given antibiotics. We'll continue supplemental oxygen and use nebs as needed. (2) SOB (shortness of breath) Status: Acute Plan: As noted above. He does have pulmonary effusion as an outpatient and evidence of infiltrate on x-ray here. CT scan pending. We'll check echocardiogram as well. His BNP is elevated above his typical baseline value of around 400. (3) Atrial fibrillation Status: Chronic Plan: INR at goal. Rate relatively well controlled. Continue medication. Would suggest less complex warfarin protocol. (4) Hypertension Status: Chronic Plan: BP of bit elevated here. We'll continue medication. Monitor. (5) Hyperkalemia Status: Acute Plan: Recheck tomorrow. Avoid ingestion of high potassium containing foods. Discussed Condition With Patient, , daughter and ER provider. Physician Certification 2 Midnight Certification Type: Admission for Inpatient Services Order for Inpatient Services The services are ordered in accordance with Medicare regulations or non- Medicare payer requirements, as applicable. In the case of services not specified as inpatient-only, they are appropriately provided as inpatient services in accordance with the 2-midnight benchmark. Estimated LOS (days): 3 days is the estimated time the patient will need to remain in the hospital, assuming treatment plan goals are met and no additional complications. Post-Hospital Plan: Not yet determined Problem Qualifiers (1) Hypertension: Qualified Code: I10 - Essential hypertension Travon Polo MD PhD Oct 10, 2016 20:35
[2016-10-10] MEDS ORDERED: FUROSEMIDE 40 MG/4 ML VIAL IV PUSH ONE (20:45)
[2016-10-10] MEDS ORDERED: methylPREDNISolone SOD SUCC 40 MG/1 ML VIAL IV PUSH ONE (20:45)
[2016-10-10] MEDS ORDERED: RESP: ALBUTEROL 2.5 MG/IPRATROPIUM 0.5 MG NEB (PRN) NEB (20:45)
[2016-10-10 21:40] VITALS: BP 163/75; PULSE 86; RESP 18; O2SAT 99
[2016-10-10 22:17] VITALS: BP 182/86; PULSE 69; RESP 17; TEMP 97.5; O2SAT 99
[2016-10-11] VITALS (10 sets, daily range): BP systolic 133–158; BP diastolic 68–93; PULSE 72–90; RESP 17–20; TEMP 95.3–97.6; O2SAT 93–99
[2016-10-11 07:11] LABS: PROTHROMBIN TIME - PATIENT 22.3 SEC (9.8-11.6)
[2016-10-11 07:43] LABS: ALKALINE PHOSPHATASE 65 U/L (45-117); ALT (GPT) 50 U/L (12-78); ANION GAP 12 MEQ/L (5-15); AST (GOT) 15 U/L (15-37); BICARBONATE 25.4 MEQ/L (21.0-32.0); BLOOD UREA NITROGEN 29 MG/DL (7-18); CHLORIDE 102 MEQ/L (98-107); GLOMERULAR FILTRATION RATE 48 ML/MIN (>89); SODIUM (NA) 139 MEQ/L (136-145); TOTAL BILIRUBIN ADULT 1.1 MG/DL (0.2-1.0)
[2016-10-11] MEDS: ISOSORBIDE MONONITRATE 30 MG TAB PO SCH (08:31)
--- NOTE | 2016-10-11 11:57 | ECHRPT ---
Indication: Persistent atrial fibrillation CONCLUSIONS The left ventricular systolic function is reduced with an estimated ejection fraction in the 40-45% . A pacemaker wire noted in RV. Mild mitral valve regurgitation. Trace aortic valve regurgitation. There is moderate tricuspid regurgitation. The estimated pulmonary arterial pressure is 49 mmHg. A small left sided pleural effusion BP: 173 / 84 HR: 85 Rhythm: Other MEASUREMENTS (Male / Female) Normal Values Technical Quality:Good 2D ECHO LV Diastolic Diameter PLAX 4.4 cm 4.2 - 5.9 / 3.9 - 5.3 cm LV Systolic Diameter PLAX 3.7 cm IVS Diastolic Thickness 1.3 cm 0.6 - 1.0 / 0.6 - 0.9 cm LVPW Diastolic Thickness 1.2 cm 0.6 - 1.0 / 0.6 - 0.9 cm LV Relative Wall Thickness 0.6 RV Internal Dim ED PLAX 2.5 cm LVOT Diameter 2.0 cm LA Systolic Diameter LX 5.2 cm 3.0 - 4.0 / 2.7 - 3.8 cm M-MODE Aortic Root Diameter MM 2.7 cm AV Cusp Separation MM 1.9 cm DOPPLER AV Peak Velocity 102.0 cm/s AV Peak Gradient 4.2 mmHg AI Peak Velocity 213.0 cm/s AI Peak Gradient 18.1 mmHg AI Pressure Half Time 803.0 ms LVOT Peak Velocity 79.5 cm/s LVOT Peak Gradient 2.5 mmHg AV Area Cont Eq pk 2.4 cm MR Peak Velocity 599.5 cm/s MR Peak Gradient 143.8 mmHg LV E' Lateral Velocity 9.0 cm/s LV E' Septal Velocity 6.0 cm/s TR Peak Velocity 312.0 cm/s TR Peak Gradient 38.9 mmHg PV Peak Velocity 93.7 cm/s PV Peak Gradient 3.5 mmHg FINDINGS LEFT VENTRICLE The left ventricular systolic function is moderately reduced with an estimated ejection fraction in the range of 40-45%. RIGHT VENTRICLE A pacemaker wire is noted. MITRAL VALVE Structurally normal mitral valve. Mild mitral valve regurgitation. AORTIC VALVE Trileaflet aortic valve. Trace aortic valve regurgitation. TRICUSPID VALVE There is moderate tricuspid regurgitation. The estimated pulmonary arterial pressure is 49 mmHg. PERICARDIUM A small left sided pleural effusion is noted. Jase Gary MD (Electronically Signed) Final Date:11 October 2016 11:56
--- NOTE | 2016-10-11 14:38 | HHI.PR ---
Subjective Remarks Pt feels slightly better today He is off supplemental O2 currently Pt still dyspneic with minimal exertion Objective Vitals Vital Signs Date Time Temp Pulse Resp B/P Pulse Ox O2 Delivery O2 Flow Rate FiO2 10/11/16 12:00 96.2 89 20 133/68 94 10/11/16 08:10 98 Nasal Cannula 4.00 10/11/16 08:00 96.0 77 20 151/85 98 10/11/16 05:43 98 Nasal Cannula 4.00 10/11/16 04:00 96.8 72 17 137/86 99 10/11/16 00:00 97.0 80 17 158/83 99 10/10/16 22:17 97.5 69 17 182/86 99 10/10/16 21:40 86 18 163/75 99 Nasal Cannula 4 10/10/16 20:17 88 18 98 Nasal Cannula 2 10/10/16 20:17 87 20 98 Nasal Cannula 2 10/10/16 18:24 85 19 173/84 97 Nasal Cannula 2 10/10/16 16:36 87 23 188/98 98 10/10/16 16:15 87 23 188/98 98 Nasal Cannula 3 10/10/16 10/10/16 10/11/16 15:00 23:00 07:00 Intake Total 240 ml 240 ml Output Total 300 ml Balance 240 ml -60 ml Intake Oral 240 ml 240 ml IV Total 0 ml Output Urine Total 300 ml # Voids 1 Result Diagram: 10/10/16 1655 10/11/16 0546 Other Results Laboratory Tests Test 10/10/16 10/11/16 10/11/16 16:55 05:43 05:46 White Blood Count 7.5 TH/MM3 Red Blood Count 4.69 MIL/MM3 Hemoglobin 14.5 GM/DL Hematocrit 42.8 % Mean Corpuscular Volume 91.2 FL Mean Corpuscular Hemoglobin 30.8 PG Mean Corpuscular Hemoglobin 33.8 % Concent Red Cell Distribution Width 16.8 % Platelet Count 198 TH/MM3 Mean Platelet Volume 9.7 FL Neutrophils (%) (Auto) 67.4 % Lymphocytes (%) (Auto) 19.0 % Monocytes (%) (Auto) 11.4 % Eosinophils (%) (Auto) 1.5 % Basophils (%) (Auto) 0.7 % Neutrophils # (Auto) 5.0 TH/MM3 Lymphocytes # (Auto) 1.4 TH/MM3 Monocytes # (Auto) 0.8 TH/MM3 Eosinophils # (Auto) 0.1 TH/MM3 Basophils # (Auto) 0.0 TH/MM3 CBC Comment DIFF FINAL Differential Comment Prothrombin Time 24.1 SEC 22.3 SEC Prothromb Time International 2.1 RATIO 2.0 RATIO Ratio Activated Partial 35.6 SEC Thromboplast Time Sodium Level 138 MEQ/L 139 MEQ/L Potassium Level 5.3 MEQ/L 4.0 MEQ/L Chloride Level 103 MEQ/L 102 MEQ/L Carbon Dioxide Level 26.1 MEQ/L 25.4 MEQ/L Anion Gap 9 MEQ/L 12 MEQ/L Blood Urea Nitrogen 25 MG/DL 29 MG/DL Creatinine 1.30 MG/DL 1.40 MG/DL Estimat Glomerular Filtration 52 ML/MIN 48 ML/MIN Rate Random Glucose 87 MG/DL 140 MG/DL Calcium Level 9.1 MG/DL 8.6 MG/DL Magnesium Level 2.3 MG/DL Total Bilirubin 1.1 MG/DL 1.1 MG/DL Aspartate Amino Transf 43 U/L 15 U/L (AST/SGOT) Alanine Aminotransferase 55 U/L 50 U/L (ALT/SGPT) Alkaline Phosphatase 60 U/L 65 U/L Total Creatine Kinase 99 U/L Troponin I 0.02 NG/ML 0.02 NG/ML B-Type Natriuretic Peptide 702 PG/ML 963 PG/ML Total Protein 7.5 GM/DL 7.7 GM/DL Albumin 3.1 GM/DL 3.2 GM/DL Lipase 97 U/L Imaging Last Impressions Chest X-Ray 10/10/16 1642 Signed Impressions: Service Date/Time: October 17:28 - CONCLUSION: Lobar consolidation left lower lobe. Jose Rodriguez MD Lung Scan-V Nuclear Medicine 10/10/16 0000 Signed Impressions: Service Date/Time: October 19:03 - CONCLUSION: Strictly indeterminate scan tending toward lower likelihood of PE given the constellation of findings Marcus Terrell MD Lower Extremity Ultrasound 10/10/16 0000 Signed Impressions: Service Date/Time: October 17:28 - CONCLUSION: The study is negative for deep venous thrombosis bilateral lower extremities. Jose Rodriguez MD Chest CT 10/10/16 0000 Signed Impressions: Service Date/Time: October 19:37 - CONCLUSION: Effusions and basilar lung atelectasis, left worse than right. Marcus Terrell MD Objective Remarks General: NAD, AAOx3 Chest: Decreased air movement in the left base Cardiac: Irregular Abd: +BS, soft ND/NT Ext: No edema A/P Problem List: (1) SOB (shortness of breath) Status: Acute Plan: - Pt presented with SOB which had been worsening for about 5 days prior to admission. - CXR (10/10) --> Lobar consolidation left lower lobe. - Pt did not appear to have other findings associated with pneumonia such as leukocytosis, fever, sputum production. - LE US was negative for DVT - V/Q scan (10/10) --> Strictly indeterminate scan tending toward lower likelihood of PE given the constellation of findings - CT chest (10/10) --> Effusions and basilar lung atelectasis, left worse than right. - Pts BNP was 702 at admission and he was given one time dose of Lasix 40mg IV in the ED. His outpt labs indicate his BNP is typically around 400 - He was started on antibiotics with Rocephin and Azithromycin in the ED and these were continued. - Pts renal function did worsen slightly to Cr 1.40 today. - 2D echo (10/11/16) - Estimated EF 40-45% - Pacemaker wire in RV - Mild mitral valve regurgitation - Moderate tricuspid regurgitation - PA pressure 49mmHg - Small left sided pleural effusion. - Pt is on Coumadin for A. fib with INR 2.0 today - Pt has been weaned down and off the supplemental O2 but still dyspneic with minimal exertion. - Case discussed between Dr. Todd and Dr. Centeno and we will plan for thoracentesis today, since the INR is 2.0 we will have to give FFP and Vitamin K 5mg x one dose prior to thoracentesis. - We will send the pleural fluid for cell count, culture, protein, LDH, and cytology. Check Serum LDH today. Serum Protein 7.7 today. - Supportive care (2) Atrial fibrillation Status: Chronic Plan: - Currently rate controlled. - INR 2.0 today. - Pt is on Coumadin 10 Mg FRIDAY, 7.5 Mg FRIDAY, FRIDAY, FRIDAY, and 5 Mg FRIDAY, FRIDAY, FRIDAY at home - Would suggest less complex warfarin protocol. - Pt currently on 7.5mg po daily here. - We will hold the Coumadin today and INR being reversed for thoracentesis today. (3) Hypertension Status: Chronic Plan: - BP more stable today - Home medications continued. - Monitor. (4) Hyperkalemia Status: Acute Plan: - Improved today. - Avoid ingestion of high potassium containing foods. Assessment and Plan Patient examined. Assessment and plan formulated with Chen Khan PA-C. I agree with the above. Problem Qualifiers (1) Hypertension: Qualified Code: I10 - Essential hypertension Chen Khan Oct 11, 2016 14:38 Josué Todd DO Oct 13, 2016 14:37
[2016-10-11] MEDS ORDERED: PHYTONADIONE 10 MG/ML VIAL SQ ONE (15:00)
[2016-10-11] MEDS ORDERED: WARFARIN SOD 7.5 MG TAB PO SCH (16:00)
[2016-10-11] MEDS ORDERED: LORazepam 2 MG/ML VIAL IV PUSH PRN (16:00)
--- NOTE | 2016-10-11 17:35 | RADRPT ---
EXAM DATE/TIME: 10/11/2016 16:28 [facility] COMPARISON: No previous studies available for comparison. INDICATIONS : Left pleural effusion. MEDICAL HISTORY : Hypertension. Gastroesophageal reflux disease. Afib. SURGICAL HISTORY : Pacemaker. Endardectomy. ENCOUNTER: Initial ACUITY: 1 day PAIN SCORE: 3/10 LOCATION: Left chest FLUID: Total volume of 850 cc of clear, red fluid was removed. Fluid was sent to lab for ordered studies. TECHNIQUE: 1. Ultrasound guidance for thoracentesis. 2. Thoracentesis. The risks, benefits, and alternatives to ultrasound guided thoracentesis were explained to the patien t in lay simple terms, including the risk of bleeding and infection. Written and verbal informed con sent was obtained. Appropriate area for thoracentesis was marked under ultrasound guidance with the patient in the uprig ht position. Overlying skin was prepped and draped in the usual sterile fashion and with local anest hetic, a dermatotomy was made with an 11 blade scalpel. A 6 [place] thoracentesis catheter was placed in the pleural space and fluid was removed. Catheter was then removed and a sterile dressing applie d. There were no immediate complications. The patient tolerated the procedure well and the left the ultrasound suite in stable condition. Chest radiograph is to be obtained. CONCLUSION: Uncomplicated ultrasound guided thoracentesis. Mario Centeno MD on October 11, 2016 at 17:33 Board Certified Radiologist. This report was verified electronically.
--- NOTE | 2016-10-11 17:38 | RADRPT ---
EXAM DATE/TIME: 10/11/2016 17:18 [facility] COMPARISON: No previous studies available for comparison. INDICATIONS : Status post left-sided thoracentesis. MEDICAL HISTORY : None. SURGICAL HISTORY : Pacemaker. ENCOUNTER: Subsequent ACUITY: 1 day PAIN SCORE: 0/10 LOCATION: Left chest FINDINGS: Patient is status post thoracentesis on the left. Minimal consolidative changes are present left bas e with pacer on the left. Right lung is reasonably clear. Heart is minimally enlarged. Pulmonary v ascularity is congested. CONCLUSION: 1. Negative for pneumothorax. 2. Mild congestive failure. Donaldo Roche MD FACR on October 11, 2016 at 17:35 Board Certified Radiologist. This report was verified electronically.
--- NOTE | 2016-10-11 17:50 | EKG ---
Date Performed: 10/10/2016 Time Performed: 16:45:21 PTAGE: 86 years EKG: ELECTRONIC VENTRICULAR PACEMAKER ABNORMAL RHYTHM ECG PREVIOUS TRACING : 05/05/2016 15.52 Compared to prior tracing no significant change DOCTOR: Evelio Matthews Interpretating Date/Time 10/11/2016 17:47:50
[2016-10-11] MEDS ORDERED: AZITHROMYCIN INJ 250 MG in SODIUM CHLOR 0.9% 250 ML INJ 250 ML IV SCH (18:00)
[2016-10-11] MEDS ORDERED: cefTRIAXone INJ 1,000 MG in SODIUM CHLORIDE 0.9% INJ 100 ML IV SCH (18:00)
[2016-10-11 20:05] LABS: PLEURAL FLUID LYMPHS 92 %
[2016-10-11] MEDS: cefTRIAXone INJ 1,000 MG in SODIUM CHLORIDE 0.9% INJ 100 ML IV SCH (20:28)
[2016-10-11] MEDS: AZITHROMYCIN INJ 250 MG in SODIUM CHLOR 0.9% 250 ML INJ 250 ML IV SCH (22:55)
[2016-10-12] VITALS (7 sets, daily range): BP systolic 136–163; BP diastolic 66–86; PULSE 77–83; RESP 16–19; TEMP 96.4–97.8; O2SAT 94–98
[2016-10-12 06:51] LABS: AUTOMATED NEUTROPHIL # 6.9 TH/MM3 (1.8-7.7); BASOPHIL # 0.1 TH/MM3 (0-0.2); BASOPHIL % 0.6 % (0.0-2.0); EOSINOPHIL # 0.2 TH/MM3 (0-0.4); EOSINOPHIL % 2.2 % (0.0-4.0); HEMATOCRIT 40.7 % (39.0-51.0); HEMO FLAGS DIFF FINAL; LYMPH % 15.5 % (9.0-44.0); LYMPHOCYTE # 1.4 TH/MM3 (1.0-4.8); MEAN CORPUSCULAR HEMOGLOBIN 30.6 PG (27.0-34.0); MEAN CORPUSCULAR HGB CONC 33.7 % (32.0-36.0); MONO % 7.8 % (0.0-8.0); NEUT % 73.9 % (16.0-70.0); PLATELET COUNT 192 TH/MM3 (150-450); RED BLOOD COUNT 4.48 MIL/MM3 (4.50-5.90); RED CELL DISTRIBUTION WIDTH 16.8 % (11.6-17.2); WHITE BLOOD COUNT 9.3 TH/MM3 (4.0-11.0)
[2016-10-12 07:06] LABS: BICARBONATE 25.4 MEQ/L (21.0-32.0); MAGNESIUM 2.1 MG/DL (1.5-2.5); POTASSIUM 3.5 MEQ/L (3.5-5.1)
[2016-10-12 07:17] LABS: INTERNATIONAL NORMALIZED RATIO 1.5 RATIO; PROTHROMBIN TIME - PATIENT 16.3 SEC (9.8-11.6)
[2016-10-12] MEDS: ISOSORBIDE MONONITRATE 30 MG TAB PO SCH (09:50)
--- NOTE | 2016-10-12 16:22 | HHI.PR ---
Subjective Remarks Pt is less SOB since left thoracentesis. Pt denies fever or chills. Pt denies cough. Objective Vitals Vital Signs Date Time Temp Pulse Resp B/P Pulse Ox O2 Delivery O2 Flow Rate FiO2 10/12/16 12:00 96.9 80 18 136/71 96 10/12/16 08:00 96.4 81 17 159/86 94 10/12/16 04:00 97.2 83 19 144/73 95 10/12/16 00:00 96.4 77 17 144/81 98 10/11/16 20:00 95.3 90 18 142/71 99 10/11/16 20:00 Room Air 10/11/16 20:00 80 10/11/16 17:30 83 18 133/93 93 10/11/16 17:28 145/90 10/11/16 17:15 90 18 145/90 97 10/11/16 17:00 81 18 141/74 96 10/11/16 16:45 97.6 80 18 135/86 98 10/11/16 10/11/16 10/12/16 15:00 23:00 07:00 Intake Total 240 ml 240 ml Balance 240 ml 240 ml Intake Oral 240 ml 240 ml # Voids 2 2 2 Result Diagram: 10/12/16 0542 10/12/16 0542 Imaging Last Impressions Thoracentesis Ultrasound 10/11/16 0000 Signed Impressions: Service Date/Time: Tuesday, October 11, 2016 16:28 - CONCLUSION: Uncomplicated ultrasound guided thoracentesis. Mario Centeno MD Chest X-Ray 10/11/16 0000 Signed Impressions: Service Date/Time: Tuesday, October 11, 2016 17:18 - CONCLUSION: 1. Negative for pneumothorax. 2. Mild congestive failure. Donaldo Roche MD FACR Lung Scan-VQ Nuclear Medicine 10/10/16 0000 Signed Impressions: Service Date/Time: October 19:03 - CONCLUSION: Strictly indeterminate scan tending toward lower likelihood of PE given the constellation of findings Marcus Terrell MD Lower Extremity Ultrasound 10/10/16 0000 Signed Impressions: Service Date/Time: October 17:28 - CONCLUSION: The study is negative for deep venous thrombosis bilateral lower extremities. Jose Rodriguez MD Chest CT 10/10/16 0000 Signed Impressions: Service Date/Time: October 19:37 - CONCLUSION: Effusions and basilar lung atelectasis, left worse than right. Marcus Terrell MD Objective Remarks General: NAD, AAOx3 Chest: Decreased air movement in the left base Cardiac: Irregular Abd: +BS, soft ND/NT Ext: No edema A/P Problem List: (1) SOB (shortness of breath) Status: Acute Plan: - Pt presented with SOB which had been worsening for about 5 days prior to admission. - CXR (10/10) --> Lobar consolidation left lower lobe. - Pt did not appear to have other findings associated with pneumonia such as leukocytosis, fever, sputum production. - LE US was negative for DVT - V/Q scan (10/10) --> Strictly indeterminate scan tending toward lower likelihood of PE given the constellation of findings - CT chest (10/10) --> Effusions and basilar lung atelectasis, left worse than right. - Pts BNP was 702 at admission and he was given one time dose of Lasix 40mg IV in the ED. His outpt labs indicate his BNP is typically around 400 - He was started on antibiotics with Rocephin and Azithromycin in the ED and these were continued. - Pts renal function did worsen slightly to Cr 1.40 today. - 2D echo (10/11/16) - Estimated EF 40-45% - Pacemaker wire in RV - Mild mitral valve regurgitation - Moderate tricuspid regurgitation - PA pressure 49mmHg - Small left sided pleural effusion. - Pt underwent left thoracentesis 10/11/16 with Radiology. 850ml removed - still awaiting pleural fluid LDH and protein to result - await pleural fluid cell count, culture, and cytology - continue rocephin and azithromycin, consider stopping 10/13 - repeat CXR in AM - consider for right thoracentesis 10/14 - start lasix and KCL, observe - Supportive care (2) Atrial fibrillation Status: Chronic Plan: - Currently rate controlled. - INR 2.0 today. - Pt is on Coumadin 10 Mg FRIDAY, 7.5 Mg FRIDAY, FRIDAY, FRIDAY, and 5 Mg FRIDAY, FRIDAY, FRIDAY at home - Would suggest less complex warfarin protocol. - Pt currently on 7.5mg po daily here. - continue to hold coumadin for possible right thoracentesis 10/14 (3) Hypertension Status: Chronic Plan: - BP more stable today - Home medications continued. - Monitor. (4) Hyperkalemia Status: Acute Plan: - Improved today. - Avoid ingestion of high potassium containing foods. Problem Qualifiers (1) Hypertension: Qualified Code: I10 - Essential hypertension Josué Todd DO Oct 12, 2016 16:22
[2016-10-12] MEDS: AZITHROMYCIN INJ 250 MG in SODIUM CHLOR 0.9% 250 ML INJ 250 ML IV SCH (21:07)
[2016-10-12] MEDS: cefTRIAXone INJ 1,000 MG in SODIUM CHLORIDE 0.9% INJ 100 ML IV SCH (21:07)
[2016-10-13] VITALS: BP 150/81; PULSE 80; RESP 16; TEMP 96.8; O2SAT 95
[2016-10-13 04:00] VITALS: BP 137/85; PULSE 78; RESP 18; TEMP 97; O2SAT 97
[2016-10-13 05:15] LABS: INTERNATIONAL NORMALIZED RATIO 1.1 RATIO; PROTHROMBIN TIME - PATIENT 11.7 SEC (9.8-11.6)
[2016-10-13 05:19] LABS: AUTOMATED NEUTROPHIL # 6.3 TH/MM3 (1.8-7.7); BASOPHIL # 0.1 TH/MM3 (0-0.2); BASOPHIL % 0.7 % (0.0-2.0); EOSINOPHIL # 0.5 TH/MM3 (0-0.4); EOSINOPHIL % 5.1 % (0.0-4.0); HEMATOCRIT 41.6 % (39.0-51.0); LYMPH % 20.6 % (9.0-44.0); LYMPHOCYTE # 2.1 TH/MM3 (1.0-4.8); MEAN CELL VOLUME 91.4 FL (80.0-100.0); MEAN CORPUSCULAR HEMOGLOBIN 31.7 PG (27.0-34.0); MEAN CORPUSCULAR HGB CONC 34.7 % (32.0-36.0); MONO % 10.6 % (0.0-8.0); PLATELET COUNT 213 TH/MM3 (150-450); RED BLOOD COUNT 4.55 MIL/MM3 (4.50-5.90); RED CELL DISTRIBUTION WIDTH 16.5 % (11.6-17.2)
[2016-10-13 06:52] LABS: BICARBONATE 22.7 MEQ/L (21.0-32.0); MAGNESIUM 2.1 MG/DL (1.5-2.5)
[2016-10-13 07:22] LABS: HEMO FLAGS AUTO DIFF
[2016-10-13 08:00] VITALS: BP 144/79; PULSE 82; RESP 18; TEMP 96.6; O2SAT 96
[2016-10-13] MEDS: ISOSORBIDE MONONITRATE 30 MG TAB PO SCH (08:32)
[2016-10-13] MEDS: POTASSIUM CHLORIDE 20 MEQ CONTROLLED RELEASE TAB PO SCH (08:32)
[2016-10-13] MEDS: FUROSEMIDE 20 MG TAB PO SCH (08:33)
[2016-10-13 09:57] LABS: SCAN/DIFF AUTO DIFF CONFIRMED
--- NOTE | 2016-10-13 10:50 | RADRPT ---
EXAM DATE/TIME: 10/13/2016 10:15 [facility] COMPARISON: CT THORAX W/O CONTRAST, October 10, 2016, 19:37. INDICATIONS : Pleural effusion left thoracentesis 10/11/2016 MEDICAL HISTORY : None. SURGICAL HISTORY : Pacemaker. ENCOUNTER: Subsequent ACUITY: 4 - 6 days PAIN SCORE: 0/10 LOCATION: Bilateral chest FINDINGS: Pacemaker is implanted in the left chest. Minimal consolidative changes are seen in the right base. There is no pneumothorax. Mild hyperinflation is evident. CONCLUSION: Interval improvement with less fluid on the left. There is no pneumothorax. Donaldo Roche MD FACR on October 13, 2016 at 10:48 Board Certified Radiologist. This report was verified electronically.
[2016-10-13 12:00] VITALS: BP 140/75; PULSE 82; RESP 18; TEMP 98; O2SAT 94
--- NOTE | 2016-10-13 14:57 | HHI.PR ---
Subjective Remarks Less SOB from admission. Objective Vitals Vital Signs Date Time Temp Pulse Resp B/P Pulse Ox O2 Delivery O2 Flow Rate FiO2 10/13/16 12:00 98.0 82 18 140/75 94 10/13/16 08:00 96.6 82 18 144/79 96 10/13/16 04:00 97.0 78 18 137/85 97 10/13/16 00:00 96.8 80 16 150/81 95 10/12/16 21:00 79 10/12/16 21:00 Nasal Cannula 2.00 10/12/16 20:00 96.6 82 16 139/66 96 10/12/16 16:00 97.8 83 19 163/83 96 10/12/16 10/12/16 10/13/16 15:00 23:00 07:00 Intake Total 240 ml 240 ml 371 ml Output Total 300 ml Balance 240 ml -60 ml 371 ml Intake Oral 240 ml 240 ml IV Total 0 ml 371 ml Output Urine Total 300 ml # Voids 4 # Bowel Movements 1 0 Result Diagram: 10/13/16 0434 10/13/16 0434 Imaging Last Impressions Chest X-Ray 10/13/16 0800 Signed Impressions: Service Date/Time: Thursday, October 13, 2016 10:15 - CONCLUSION: Interval improvement with less fluid on the left. There is no pneumothorax. Donaldo Roche MD FACR Thoracentesis Ultrasound 10/11/16 0000 Signed Impressions: Service Date/Time: Tuesday, October 11, 2016 16:28 - CONCLUSION: Uncomplicated ultrasound guided thoracentesis. Mario Centeno MD Lung Scan- Nuclear Medicine 10/10/16 0000 Signed Impressions: Service Date/Time: October 19:03 - CONCLUSION: Strictly indeterminate scan tending toward lower likelihood of PE given the constellation of findings Marcus Terrell MD Lower Extremity Ultrasound 10/10/16 0000 Signed Impressions: Service Date/Time: October 17:28 - CONCLUSION: The study is negative for deep venous thrombosis bilateral lower extremities. Jose Rodriguez MD Chest CT 10/10/16 0000 Signed Impressions: Service Date/Time: October 19:37 - CONCLUSION: Effusions and basilar lung atelectasis, left worse than right. Marcus Terrell MD Objective Remarks General: NAD, AAOx3 Chest: clear x b/l Cardiac: Irregular Abd: +BS, soft ND/NT Ext: No edema A/P Problem List: (1) SOB (shortness of breath) Status: Acute Plan: - Pt presented with SOB which had been worsening for about 5 days prior to admission. - CXR (10/10) --> Lobar consolidation left lower lobe. - Pt did not appear to have other findings associated with pneumonia such as leukocytosis, fever, sputum production. - LE US was negative for DVT - V/Q scan (10/10) --> Strictly indeterminate scan tending toward lower likelihood of PE given the constellation of findings - CT chest (10/10) --> Effusions and basilar lung atelectasis, left worse than right. - Pts BNP was 702 at admission and he was given one time dose of Lasix 40mg IV in the ED. His outpt labs indicate his BNP is typically around 400 - repeat BNP in AM - stop Rocephin and Azithromycin - Pts renal function did worsen slightly to Cr 1.40 today. - 2D echo (10/11/16) - Estimated EF 40-45% - Pacemaker wire in RV - Mild mitral valve regurgitation - Moderate tricuspid regurgitation - PA pressure 49mmHg - Small left sided pleural effusion. - Pt underwent left thoracentesis 10/11/16 with Radiology. 850ml removed - still awaiting pleural fluid LDH and protein to result - await pleural fluid cell count, culture, and cytology - consider for right thoracentesis 10/14 - obtain Chest US for markings - lasix and KCL, observe - repeat BMP, Mg, BNP in AM - Supportive care (2) Atrial fibrillation Status: Chronic Plan: - Currently rate controlled. - INR 2.0 today. - Pt is on Coumadin 10 Mg FRIDAY, 7.5 Mg FRIDAY, FRIDAY, FRIDAY, and 5 Mg FRIDAY, FRIDAY, FRIDAY at home - Would suggest less complex warfarin protocol. - Pt currently on 7.5mg po daily here. - continue to hold coumadin for possible right thoracentesis 10/14 (3) Hypertension Status: Chronic Plan: - BP more stable today - Home medications continued. - Monitor. (4) Hyperkalemia Status: Acute Plan: - Improved today. - Avoid ingestion of high potassium containing foods. Problem Qualifiers (1) Hypertension: Qualified Code: I10 - Essential hypertension Josué Todd DO Oct 13, 2016 14:57
[2016-10-13 16:00] VITALS: BP 150/83; PULSE 90; RESP 17; TEMP 96.2; O2SAT 97
--- NOTE | 2016-10-13 19:26 | RADRPT ---
EXAM DATE/TIME: 10/13/2016 18:40 [facility] COMPARISON: No previous studies available for comparison. INDICATIONS : Right pleural effusion. MEDICAL HISTORY : Congestive heart failure. Hypercholesterolemia. Arthritis. Chest pain. Afib. HTN. Sleep apnea. Dyspne a. GERD. Hiatal hernia. Gait problems. Anxiety. Anticoagulant therapy. SURGICAL HISTORY : Pacemaker. Left carotid endartectomy. Wrist surgery. Thoracentesis. ENCOUNTER: Subsequent ACUITY: 3 days PAIN SCORE: 1/10 LOCATION: Right chest FINDINGS: Ultrasound of the right chest was performed for purposes of planning thoracentesis. There is a small collection of pleural fluid which measures less than 2 cm in thickness. There is some intervening l antoni. Estimated fluid volume is less than 100 cc. CONCLUSION: Insufficient fluid for thoracentesis. Jose Rodriguez MD on October 13, 2016 at 19:22 Board Certified Radiologist. This report was verified electronically.
[2016-10-13 20:00] VITALS: BP 152/69; PULSE 64; RESP 22; TEMP 96.1; O2SAT 94
[2016-10-14] VITALS: BP 155/87; PULSE 91; RESP 22; TEMP 96.8; O2SAT 99
[2016-10-14 04:00] VITALS: BP 129/67; PULSE 83; RESP 20; TEMP 96.8; O2SAT 95
[2016-10-14] MEDS ORDERED: LACTATED RINGER'S 1000 ML IV PRN (04:30)
[2016-10-14 05:38] LABS: AUTOMATED NEUTROPHIL # 3.8 TH/MM3 (1.8-7.7); BASOPHIL # 0.1 TH/MM3 (0-0.2); BASOPHIL % 0.9 % (0.0-2.0); EOSINOPHIL # 0.5 TH/MM3 (0-0.4); EOSINOPHIL % 7.4 % (0.0-4.0); HEMATOCRIT 39.7 % (39.0-51.0); HEMO FLAGS DIFF FINAL; LYMPH % 20.9 % (9.0-44.0); LYMPHOCYTE # 1.3 TH/MM3 (1.0-4.8); MEAN CORPUSCULAR HEMOGLOBIN 31.1 PG (27.0-34.0); MEAN CORPUSCULAR HGB CONC 34.1 % (32.0-36.0); MONO % 11.7 % (0.0-8.0); NEUT % 59.1 % (16.0-70.0); PLATELET COUNT 194 TH/MM3 (150-450); RED BLOOD COUNT 4.36 MIL/MM3 (4.50-5.90); RED CELL DISTRIBUTION WIDTH 16.5 % (11.6-17.2); WHITE BLOOD COUNT 6.3 TH/MM3 (4.0-11.0)
[2016-10-14 06:04] LABS: BICARBONATE 24.1 MEQ/L (21.0-32.0); MAGNESIUM 2.1 MG/DL (1.5-2.5); POTASSIUM 3.7 MEQ/L (3.5-5.1)
[2016-10-14] MEDS: ISOSORBIDE MONONITRATE 30 MG TAB PO SCH (07:43)
[2016-10-14] MEDS: FUROSEMIDE 20 MG TAB PO SCH (07:43)
[2016-10-14] MEDS: POTASSIUM CHLORIDE 20 MEQ CONTROLLED RELEASE TAB PO SCH (07:43)
[2016-10-14 08:00] VITALS: BP 144/86; PULSE 85; RESP 18; TEMP 96.1; O2SAT 92
--- NOTE | 2016-10-14 10:31 | HHI.PR ---
Subjective Remarks Pt overall feeling better today He walked with PT and his O2 sats stayed stable. Denies any chest pain or palpitations. Objective Vitals Vital Signs Date Time Temp Pulse Resp B/P Pulse Ox O2 Delivery O2 Flow Rate FiO2 10/14/16 08:00 96.1 85 18 144/86 92 10/14/16 08:00 92 Room Air 10/14/16 04:00 96.8 83 20 129/67 95 10/14/16 00:00 96.8 91 22 155/87 99 10/13/16 21:10 Room Air 10/13/16 20:00 96.1 64 22 152/69 94 10/13/16 16:00 96.2 90 17 150/83 97 10/13/16 12:00 98.0 82 18 140/75 94 10/13/16 10/13/16 10/14/16 15:00 23:00 07:00 Intake Total 240 ml 240 ml 240 ml Balance 240 ml 240 ml 240 ml Intake Oral 240 ml 240 ml 240 ml IV Total 0 ml 0 ml # Voids 5 2 2 # Bowel Movements 2 0 0 Result Diagram: 10/14/16 0400 10/14/16 0400 Other Results Laboratory Tests Test 10/13/16 10/14/16 04:34 04:00 White Blood Count 10.0 TH/MM3 6.3 TH/MM3 Red Blood Count 4.55 MIL/MM3 4.36 MIL/MM3 Hemoglobin 14.4 GM/DL 13.5 GM/DL Hematocrit 41.6 % 39.7 % Mean Corpuscular Volume 91.4 FL 91.0 FL Mean Corpuscular Hemoglobin 31.7 PG 31.1 PG Mean Corpuscular Hemoglobin 34.7 % 34.1 % Concent Red Cell Distribution Width 16.5 % 16.5 % Platelet Count 213 TH/MM3 194 TH/MM3 Mean Platelet Volume 10.5 FL 10.0 FL Neutrophils (%) (Auto) 63.0 % 59.1 % Lymphocytes (%) (Auto) 20.6 % 20.9 % Monocytes (%) (Auto) 10.6 % 11.7 % Eosinophils (%) (Auto) 5.1 % 7.4 % Basophils (%) (Auto) 0.7 % 0.9 % Neutrophils # (Auto) 6.3 TH/MM3 3.8 TH/MM3 Lymphocytes # (Auto) 2.1 TH/MM3 1.3 TH/MM3 Monocytes # (Auto) 1.1 TH/MM3 0.7 TH/MM3 Eosinophils # (Auto) 0.5 TH/MM3 0.5 TH/MM3 Basophils # (Auto) 0.1 TH/MM3 0.1 TH/MM3 CBC Comment AUTO DIFF DIFF FINAL Differential Comment AUTO DIFF CONFIRMED Prothrombin Time 11.7 SEC Prothromb Time International 1.1 RATIO Ratio Sodium Level 139 MEQ/L 140 MEQ/L Potassium Level 4.0 MEQ/L 3.7 MEQ/L Chloride Level 104 MEQ/L 105 MEQ/L Carbon Dioxide Level 22.7 MEQ/L 24.1 MEQ/L Anion Gap 12 MEQ/L 11 MEQ/L Blood Urea Nitrogen 29 MG/DL 26 MG/DL Creatinine 1.37 MG/DL 1.08 MG/DL Estimat Glomerular Filtration 49 ML/MIN 65 ML/MIN Rate Random Glucose 93 MG/DL 92 MG/DL Calcium Level 8.3 MG/DL 8.9 MG/DL Magnesium Level 2.1 MG/DL 2.1 MG/DL B-Type Natriuretic Peptide 503 PG/ML Imaging Last Impressions Chest X-Ray 10/13/16 0800 Signed Impressions: Service Date/Time: Thursday, October 13, 2016 10:15 - CONCLUSION: Interval improvement with less fluid on the left. There is no pneumothorax. Donaldo Roche MD FACR Thoracentesis Ultrasound 10/11/16 0000 Signed Impressions: Service Date/Time: Tuesday, October 11, 2016 16:28 - CONCLUSION: Uncomplicated ultrasound guided thoracentesis. Mario Centeno MD Lung Scan- Nuclear Medicine 10/10/16 0000 Signed Impressions: Service Date/Time: October 19:03 - CONCLUSION: Strictly indeterminate scan tending toward lower likelihood of PE given the constellation of findings Marcus Terrell MD Lower Extremity Ultrasound 10/10/16 0000 Signed Impressions: Service Date/Time: October 17:28 - CONCLUSION: The study is negative for deep venous thrombosis bilateral lower extremities. Jose Rodriguez MD Chest CT 10/10/16 0000 Signed Impressions: Service Date/Time: October 19:37 - CONCLUSION: Effusions and basilar lung atelectasis, left worse than right. Marcus Terrell MD Objective Remarks General: NAD, AAOx3 Chest: clear x b/l Cardiac: Irregular Abd: +BS, soft ND/NT Ext: No edema A/P Problem List: (1) SOB (shortness of breath) Status: Acute Plan: - Pt presented with SOB which had been worsening for about 5 days prior to admission. - CXR (10/10) --> Lobar consolidation left lower lobe. - Pt did not appear to have other findings associated with pneumonia such as leukocytosis, fever, sputum production. - LE US was negative for DVT - V/Q scan (10/10) --> Strictly indeterminate scan tending toward lower likelihood of PE given the constellation of findings - CT chest (10/10) --> Effusions and basilar lung atelectasis, left worse than right. - Pts BNP was 702 at admission and he was given one time dose of Lasix 40mg IV in the ED. His outpt labs indicate his BNP is typically around 400 - Repeat BNP 503 today - Rocephin and Azithromycin stopped on 10/12/16 - Pts renal function has been stable. - 2D echo (10/11/16) - Estimated EF 40-45% - Pacemaker wire in RV - Mild mitral valve regurgitation - Moderate tricuspid regurgitation - PA pressure 49mmHg - Small left sided pleural effusion. - Pt underwent left thoracentesis 10/11/16 with Radiology with removal of 850ml of pleural fluid - Fluid culture with no growth in 72 hours, cytology is pending. Still awaiting pleural fluid LDH and protein to result - US of the right chest on 10/13 did not reveal enough fluid for thoracentesis - Pt is on Lasix 20mg po daily and KCL, observe - Repeat BMP, Mg, BNP in AM - Supportive care (2) Atrial fibrillation Status: Chronic Plan: - Currently rate controlled. - INR 1.1 today. - Pt is on Coumadin 10 Mg FRIDAY, 7.5 Mg FRIDAY, FRIDAY, FRIDAY, and 5 Mg FRIDAY, FRIDAY, FRIDAY at home - Would suggest less complex warfarin protocol. - Pt and are interested in new anticoagulants (3) Hypertension Status: Chronic Plan: - BP more stable today - Home medications continued. - Monitor. (4) Hyperkalemia Status: Acute Plan: - Improved today. - Avoid ingestion of high potassium containing foods. Problem Qualifiers (1) Hypertension: Qualified Code: I10 - Essential hypertension Chen Khan Oct 14, 2016 10:31
[2016-10-14 12:00] VITALS: BP 140/69; PULSE 77; RESP 16; TEMP 95.2; O2SAT 97
[2016-10-14] MEDS ORDERED: APIX2.5T PO (12:59)
[2016-10-14] MEDS ORDERED: FURO20TA PO (12:59)
[2016-10-14] MEDS ORDERED: POTA20TA5 PO (12:59)
--- NOTE | 2016-10-14 13:01 | HHI.DCPOC ---
Discharge Care Plan Diagnosis: (1) Systolic CHF, acute (2) SOB (shortness of breath) (3) Hypertension (4) Atrial fibrillation Goals to Promote Your Health - NEW MEDICATIONS INCLUDE: - Eliquis 2.5mg twice daily (anticoagulant) - Lasix 20mg once daily (Diuretic) - Potassium 20meq one daily (Electrolyte replacement) - Patient is to get a recheck of his electrolytes and kidney function within the next week, prior to followup with his PCP - Patient is to followup with his PCP, Dr. Ross, in the next week, call for an appt. Directions to Meet Your Goals Take your medications as prescribed Follow your dietary instruction Follow activity as directed Keep your appointments as scheduled Take your immunizations and boosters as scheduled If your symptoms worsen call your PCP, if no PCP go to Urgent Care Center or Emergency Room Smoking is Dangerous to Your Health. Avoid second hand smoke Call the 24-hour hour crisis hotline for domestic abuse at Chen Khan Oct 14, 2016 13:01 Josué Todd DO Oct 16, 2016 01:02
--- NOTE | 2016-10-14 13:03 | HHI.FF ---
Face to Face Verification Diagnosis: (1) Systolic CHF, acute (2) SOB (shortness of breath) (3) Hypertension (4) Atrial fibrillation Home Health Nursing Order: Signs/symptoms of disease process CHF education Nursing assessment with vital signs Instructions: Patient needs a BMP and Magnesium level checked on 10/18/16, with results to his PCP, Dr. Gonzalo Ross. I have seen patient Mohit Trujillo on 10/14/16. My clinical findings support the need for the requested home health care services because: Patient has SOB I certify that my clinical findings support that this patient is homebound because: Unable to use public transportation Chen Khan Oct 14, 2016 13:03 Josué Todd DO Oct 16, 2016 01:02
--- NOTE | 2016-10-14 13:25 | HHI.DS ---
Discharge Summary Admission Date Oct 10, 2016 at 20:39 Discharge Date: Oct 14, 2016 Admitting Diagnosis Pneumonia, shortness of breath (1) Systolic CHF, acute Diagnosis: Principal (2) SOB (shortness of breath) Diagnosis: Secondary (3) Atrial fibrillation Diagnosis: Secondary (4) Hypertension Diagnosis: Secondary (5) Hyperkalemia Diagnosis: Secondary Brief History Patient is an 86 year old male with history of afib, pacemaker, htn, ? COPD who was sent to the ER by his PCP Dr. Ross for admission and evaluation of SOB. Patient reports that he has been short of breath for the past 5 days. Reports that he is short of breath at rest as well as on exertion. Dyspnea is worse with lying flat. Reports no chest pain, denies cough/congestion. Denies fever/ chills. He apparently saw Dr. Diaz 4 days ago and no new diagnosis was made but he had some tests ordered. Per outpatient chart review patient has had dyspnea for quite some time but current episode has been ongoing for 5 days. He is noted to have pleural effusions and has been seeing pulmonology regarding this. The etiology of this profusion is as of yet undetermined but was noted on October 07 chest x-ray as an outpatient. Patient denies any significant weight gain or lower extremity edema of late. He actually states that he has overall lost weight over the last few months. Review of outpatient records does support approximately 12-15 pound weight loss over the last few months. He states that he feels better here with supplemental oxygen in place. It is noted that his outpatient room air saturation was 94%. He has had no recent medication change but apparently was treated for bronchitis with azithromycin several months ago. He also had isosorbide started at the end of July of this year for some intrascapular back pain. This helped his shortness of breath for a while but the dyspnea has returned now. He denies any hemoptysis or night sweats. CBC/BMP: 10/14/16 0400 10/14/16 0400 Significant Findings Laboratory Tests Test 10/11/16 10/12/16 10/13/16 10/14/16 17:10 05:42 04:34 04:00 Pleural Fluid WBC 1604 /MM3 (0-10) Pleural Fluid RBC 4807 /MM3 (0-0) Red Blood Count 4.48 MIL/MM3 4.36 MIL/MM3 (4.50-5.90) (4.50-5.90) Neutrophils (%) (Auto) 73.9 % (16.0-70.0) Prothrombin Time 16.3 SEC 11.7 SEC (9.8-11.6) (9.8-11.6) Blood Urea Nitrogen 31 MG/DL (7-18) 29 MG/DL (7-18) 26 MG/DL (7-18) Estimat Glomerular Filtration 55 ML/MIN (>89) 49 ML/MIN (>89) 65 ML/MIN (>89) Rate Monocytes (%) (Auto) 10.6 % 11.7 % (0.0-8.0) (0.0-8.0) Eosinophils (%) (Auto) 5.1 % (0.0-4.0) 7.4 % (0.0-4.0) Monocytes # (Auto) 1.1 TH/MM3 (0-0.9) Eosinophils # (Auto) 0.5 TH/MM3 0.5 TH/MM3 (0-0.4) (0-0.4) Creatinine 1.37 MG/DL (0.60-1.30) Calcium Level 8.3 MG/DL (8.5-10.1) B-Type Natriuretic Peptide 503 PG/ML (0-100) Imaging Last Impressions Chest X-Ray 10/13/16 0800 Signed Impressions: Service Date/Time: Thursday, October 13, 2016 10:15 - CONCLUSION: Interval improvement with less fluid on the left. There is no pneumothorax. Donaldo Roche MD FACR Chest Ultrasound 10/13/16 0000 Signed Impressions: Service Date/Time: Thursday, October 13, 2016 18:40 - CONCLUSION: Insufficient fluid for thoracentesis. Jose Rodriguez MD Thoracentesis Ultrasound 10/11/16 0000 Signed Impressions: Service Date/Time: Tuesday, October 11, 2016 16:28 - CONCLUSION: Uncomplicated ultrasound guided thoracentesis. Mario Centeno MD Lung Scan- Nuclear Medicine 10/10/16 0000 Signed Impressions: Service Date/Time: October 19:03 - CONCLUSION: Strictly indeterminate scan tending toward lower likelihood of PE given the constellation of findings Marcus Terrell MD Lower Extremity Ultrasound 10/10/16 0000 Signed Impressions: Service Date/Time: October 17:28 - CONCLUSION: The study is negative for deep venous thrombosis bilateral lower extremities. Jose Rodriguez MD Chest CT 10/10/16 0000 Signed Impressions: Service Date/Time: October 19:37 - CONCLUSION: Effusions and basilar lung atelectasis, left worse than right. Marcus Terrell MD PE at Discharge General: NAD, AAOx3 Chest: clear x b/l Cardiac: Irregular Abd: +BS, soft ND/NT Ext: No edema Hospital Course Pt presented with SOB which had been worsening for about 5 days prior to admission. CXR (10/10) --> Lobar consolidation left lower lobe. Pt did not appear to have other findings associated with pneumonia such as leukocytosis, fever, sputum production. LE US was negative for DVT. V/Q scan (10/10) --> Strictly indeterminate scan tending toward lower likelihood of PE given the constellation of findings. CT chest (10/10) --> Effusions and basilar lung atelectasis, left worse than right. Pts BNP was 702 at admission and he was given one time dose of Lasix 40mg IV in the ED. His outpt labs indicate his BNP is typically around 400. His BNP increased to 963 on 10/11. Rocephin and Azithromycin was started at admission but stopped on 10/12/16. 2D echo (10/11/16) indicated Estimated EF 40-45%, Pacemaker wire in RV, Mild mitral valve regurgitation, Moderate tricuspid regurgitation, PA pressure 49mmHg, and Small left sided pleural effusion. Pt underwent left thoracentesis 10/11/16 with Radiology with removal of 850ml of pleural fluid. Fluid culture with no growth in 72 hours, cytology is pending. Pleural fluid LDH and protein still pending at discharge. US of the right chest on 10/13 did not reveal enough fluid for thoracentesis. He was started on Lasix 20mg po daily on 10/13. Repeat BMP and Mg + are stable. Pt will be discharged home on Lasix 20mg po daily and KCL 20meq po daily. He will need a repeat BMP and Mg+ on 10/18/16 with results to his PCP, Dr. Gonzalo Ross. Pt has hx of atrial fibrillation and had been on Coumadin prior to admission. His outpt regimen consisted of Coumadin 10 Mg FRIDAY, 7.5 Mg FRIDAY, FRIDAY, FRIDAY, and 5 Mg FRIDAY, FRIDAY, FRIDAY at home. Pts Coumadin was held here and he was given reversal agents to have thoracentesis on 10/11. The pt and his inquired about not resuming Coumadin and changing to one of the newer anticoagulants. Discussed the risks and benefits of Eliquis 2.5mg po BID, and they expressed understanding and wanted to start this instead of resuming Coumadin. Pt Condition on Discharge: Stable Discharge Disposition: Disch w/ Home Health Serv Discharge Instructions DIET: Follow Instructions for: Heart Healthy Diet Activities you can perform: Regular-No Restrictions Follow up Referrals: PCP Follow-up - [address] Gonzalo Ross New Medications: Apixaban (Eliquis) 2.5 Mg Tab 2.5 MG PO BID Blood Clot Prevention #62 Ref 0 TAB Furosemide (Furosemide) 20 Mg Tab 20 MG PO DAILY CHF #31 TAB Potassium Chloride Microencaps (Potassium Chloride Microencaps) 20 Meq Tab 20 MEQ PO DAILY CHF #31 TAB Continued Medications: Isosorbide Mononitrate ER (Isosorbide Mononitrate ER) 30 Mg Liliane 30 MG PO DAILY Prevent Chest Pain #30 Ref 0 TAB [place]-3 Fatty Acids (Fish Oil 1200 mg) 1 Cap Cap 1200 MG PO DAILY ([Q10]) Discontinued Medications: Warfarin (Warfarin) 5 Mg Tab 5 MG PO sat,fri,fri Blood Clot Prevention #30 Ref 0 TAB Warfarin (Warfarin) 7.5 Mg Tab 7.5 MG PO ,,.fri Blood Clot Prevention #30 Ref 0 TAB Warfarin (Coumadin) 10 Mg Tab 10 MG PO DAILY Prevent Blood Clot #30 Ref 0 TAB Chen Khan Oct 14, 2016 13:25 Edmund Menard MD Oct 14, 2016 14:14
[2016-10-16 04:43] LABS: BODY FLUID LDH 139 U/L (()); BODY FLUID LDH SOURCE PLEURAL FLUID (())
== END 2016-10-14 14:26 | disposition home or self-care (01) | DRG 291 ==
LOC: NEPE 16:04 → NEDA 18:44 → OBSVTOIN 20:39 → N07A 22:20
PROVIDERS: ADMIT Hospitalist; ATTEND Hospitalist
PROC: 0W9B3ZX Drainage of Left Pleural Cavity, Percutaneous Approach, Diagnostic (ICD-10-PCS; principal; 2016-10-11)
PROC: 30233K1 Transfusion of Nonautologous Frozen Plasma into Peripheral Vein, Percutaneous Approach (ICD-10-PCS; 2016-10-11)
DX: I13.0 Hypertensive heart and chronic kidney disease with heart failure and stage 1 through stage 4 chronic kidney disease, or unspecified chronic kidney disease (principal); I50.21 Acute systolic (congestive) heart failure; J90 Pleural effusion, not elsewhere classified; I27.2 Other secondary pulmonary hypertension; E87.5 Hyperkalemia; I48.2 Chronic atrial fibrillation; I08.1 Rheumatic disorders of both mitral and tricuspid valves; I73.9 Peripheral vascular disease, unspecified; I10 Essential (primary) hypertension; K21.9 Gastro-esophageal reflux disease without esophagitis; N40.0 Benign prostatic hyperplasia without lower urinary tract symptoms; E78.5 Hyperlipidemia, unspecified; G47.33 Obstructive sleep apnea (adult) (pediatric); N18.3 Chronic kidney disease, stage 3 (moderate); H91.90 Unspecified hearing loss, unspecified ear; J44.9 Chronic obstructive pulmonary disease, unspecified; Z79.01 Long term (current) use of anticoagulants; Z95.0 Presence of cardiac pacemaker; Z87.891 Personal history of nicotine dependence
CPT/HCPCS: 32555; 36430; 71010; 71020; 71250; 76604; 76937; 78582; 80048; 80053; 82550; 83615; 83690; 83735; 83880; 84157; 84484; 85025; 85610; 85730; 86927; 87040; 87070; 87205; 88112; 88305; 89051; 93005; 93306; 93970; 96365; A9540; A9567; C1729; J0456; J0696; J1940; J2060; J2920; J3430; J7050; P9017